=== PATIENT | female | born 1940 | race Caucasian/White ===

== ENCOUNTER 2016-06-02 10:06 | Emergency (ER) | payer OTHER ==
[~2016-06-02] VITALS: Ht 154.9 cm; Wt 96.9 kg
[~2016-06-02 10:06] MED LIST: ABILIFY5 MG PO; ACETAMINOPHEN500 MG PO; ADVAIR 500/501 DISK IH; ANALGESIC325 M1 PO; ANAPROX DS550 M1 PO; ASPIR 8181 M1 PO; ASPIRIN325 MG PO; ASPIRIN81 M2 PO; ATARAX,VISTARIL25 MG PO; AZILECT1 MG PO; Ativan PO; BACTRIM,SEPT1 TABLET PO; BENTYL20 MG PO; BUSPAR10 MG PO; CALCIUM CARB1 TABLET PO; CARBIDOPA-LEVO1 EAC5 PO; CARBIDOPA-LEVO1 EAC8 PO; CIPRO500 MG PO; CITRATE OF MAG296 ML PO; COL-RITE100 M1 PO; COLACE100 MG PO; COUMADIN1 MG PO; CYMBALTA30 MG PO; CYMBALTA60 MG PO; Ceftin PO; Colace PO; Combivent IH; Cymbalta PO; DAILY VITE1 EAC1 PO; DEPAKOTE500 MG PO; DICYCLOMINE HCL20 MG PO; DITROPAN5 MG PO; DIVALPROEX SOD500 M1 PO; DIVALPROEX SOD500 MG PO; DOCUSATE SODIU100 MG PO; DOXYCYCLINE HY100 MG PO; DULCOLAX10 MG PR; DULCOLAX5 MG PO; Depakote PO; Ditropan PO; Dulcolax PR; DuoNeb IH; Ecotrin PO; FLOVENT 22120 INHALA IH; FUROSEMIDE20 MG PO; Flovent 220 mcg IH; GENTLE LAXATIVE10 MG RC; GEODON40 MG PO; GLUCOPHAGE500 MG PO; Geodon PO; HUMALOG MI100 UNIT/5 SC; HUMALOG100 UNIT/2 SC; HUMULIN 70100 UNIT/1 SC; HYDROCODON-ACE1 EAC7 PO; KEFLEX500 MG PO; KLONOPIN0.5 M1 PO; LANTUS 3 M100 UNITS/ SC; LANTUS100 UNIT/1 SQ; LASIX20 MG PO; LAXATIVE SUPPOS10 MG PR; LEVEMIR FL100 UNIT/1 SC; LEVEMIR FL100 UNITS/; LEVEMIR FL100 UNITS/ SC; LEVEMIR100 UNIT/2 SC; LEVOFLOXACIN750 MG PO; LEVOTHROID75 MCG PO; LEVOTHYROXINE88 MCG PO; LEVOXYL88 MCG PO; LISINOPRIL10 MG PO; LISINOPRIL20 MG PO; LISINOPRIL5 MG PO; LO-DOSE ASPIRIN81 M2 PO; LOPRESSOR25 MG PO; LORTAB 5-325 M1 EACH PO; LOW DOSE ASPIRI81 M2 PO; LYRICA150 MG PO; LYRICA50 MG PO; LYRICA75 MG PO; Levothroid,Synthroid PO; Lopressor PO; MEDROL DOSEPAK4 MG PO; METFORMIN HCL500 MG PO; METOPROLOL TART25 MG PO; METOPROLOL TART50 MG PO; METRONIDAZOLE500 MG PO; MIRALAX17 GM PO; MONTELUKAST SOD10 MG PO; MULTIVITAMIN1 EAC2 PO; MYRBETRIQ25 MG PO; Miralax, Glycolax PO; NEURONTIN300 MG PO; NOVOLOG 10100 UNITS/ SC; NOVOLOG MI100 UNIT/M PO; NOVOLOG MI100 UNIT/M SC; NOVOLOG MIX SQ; NOVOLOG PE100 UNITS/; NOVOLOG PE100 UNITS/ SC; NOVOLOG100 UNIT/1 SC; NOVOLOG100 UNIT/1 SQ; OMEPRAZOLE40 M1 PO; ONE DAILY FOR1 EAC3 PO; ONE DAILY MULT1 EACH PO; OXYBUTYNIN CHLO10 MG PO; OXYBUTYNIN CHLOR5 M1 PO; OXYBUTYNIN CHLOR5 MG PO; OXYTROL FOR WO1 EACH TD; PAIN RELIEVER500 MG PO; POLYETHYLENE GL17 GM PO; PREDNISONE10 MG PO; PRILOSEC40 MG PO; PRINIVIL20 MG PO; PRINIVIL5 MG PO; PROAIR HFA8.5 GM IH; PROMETHAZINE12.5 M1 PO; RESVERATROL100 MG PO; SENNA PO; SENNA-TIME S T1 EACH PO; SENOKOT S,PE1 TABLET PO; SENOKOT,SENN1 TABLET PO; SIMVASTATIN40 M1 PO; SIMVASTATIN40 MG PO; SINEMET 25-2501 EAC1 PO; SINEMET CR 25-1 EACH PO; SINEMET CR 50-1 EACH PO; SINEMET PO; SINGULAIR10 MG PO; STOOL SOFTENER100 M1 PO; SUPER B MAXI C0.4 MG PO; SYNTHROID75 MCG PO; SYNTHROID88 MCG PO; Senokot,Sennagen PO; Singulair PO; TIROSINT75 MCG PO; TOPROL XL25 MG PO; TOPROL XL6.25 MG PO; TOUJEO SOL300 UNIT/1 SC; TRAMADOL HCL50 MG PO; TYLENOL WITH C1 EACH PO; Tylenol Extra Streng PO; ULTRAM50 MG PO; VALPROIC ACID1 GM MC; VENTOLIN HFA18 GM IH; VESICARE5 MG PO; WOMEN'S 50+ DA1 EAC1 PO; XANAX0.25 MG PO; Xanax PO; ZESTRIL20 MG PO; ZESTRIL5 MG PO; ZIPRASIDONE HCL40 MG PO; ZOCOR40 MG PO; ZOFRAN ODT4 MG PO; ZOFRAN4 MG PO; ZOVIRAX 5%; predniSONE PO
[2016-06-02 10:39] LABS: POINT-OF-CARE METER ID UU13113702
[2016-06-02 11:32] LABS: BASOPHIL COUNT 0.1 K/uL (0-0.1); EOSINOPHIL (%) 0.9 % (0-5); EOSINOPHIL COUNT 0.1 K/uL (0-0.3); HEMATOCRIT 44.2 % (36.0-46.0); IMMATURE GRANULOCYTE (%) 0.7 % (0.0-0.7); IMMATURE GRANULOCYTE COUNT 0.6 K/uL; LYMPHOCYTE COUNT 1.9 K/uL (1.0-2.8); MCH 31.5 PG (29.0-34.0); MCHC 35.1 G/DL (30.0-36.0); MCV 89.8 FL (83-99); MEAN PLAT.VOLUME 12.2 uM^3 (9.5-12.4); MONOCYTE (%) 7.6 % (3-12); MONOCYTE COUNT 0.7 K/uL (0-0.8); NEUTROPHIL (%) 69.2 % (45-76); NEUTROPHIL COUNT 6.1 K/uL (1.8-6.4); PLATELET COUNT 197 K/uL (156-360); RBC DIS.WIDTH-CV 12.5 % (11.8-14.6); RBC DIS.WIDTH-SD 40.2 % (39-53); RED BLOOD COUNT 4.92 M/uL (3.80-5.20); WHITE BLOOD COUNT 8.9 K/uL (4.1-10.2)
[2016-06-02 11:41] LABS: CHLORIDE 98 mEq/L (99-109); POTASSIUM 4.8 mEq/L (3.7-5.4); SODIUM 136 mEq/L (136-147)
[2016-06-02 11:44] LABS: GLUCOSE 454 mg/dL (70-99)
[2016-06-02 11:45] LABS: ANION GAP 21 MEQ/L (2-14)
[2016-06-02 11:47] LABS: GFR ESTIMATE (CALCULATED) 36 mL/min/
[2016-06-02 11:48] LABS: UREA NITROGEN (BUN) 27 mg/dL (9-23)
[2016-06-02 12:03] LABS: ADD MIUA? YES; BILIRUBIN NEGATIVE; BLOOD NEGATIVE; COLOR YELLOW ((YELLOW)); GLUCOSE (STRIP) >=500; KETONES 20; LEUKOCYTES TRACE; NITRITE NEGATIVE; PROTEIN (STRIP) NEGATIVE; SPECIFIC GRAVITY 1.016 (1.000-1.030); UROBILINOGEN 0.2 MG/DL (0.2-1.0)
[2016-06-02 12:08] LABS: CARBON DIOXIDE (BICARBONATE) 23.4 MEQ/L (20-31)
[2016-06-02 12:22] LABS: BACTERIA RARE /HPF; EPITHELIAL CELLS RARE /HPF; MUCUS NONE SEEN /LPF; RED BLOOD CELLS NONE SEEN /HPF (0-5); UCUL ADDED? NO; WHITE BLOOD CELLS RARE /HPF (0-5)
[2016-06-02 12:31] LABS: POINT-OF-CARE METER ID UU13113702
[2016-06-02 15:31] VITALS: BP 104/84
== END 2016-06-02 15:59 | disposition home or self-care (01) ==
LOC: EME 10:06
PROVIDERS: Emergency Medicine
DX: E11.65 Type 2 diabetes mellitus with hyperglycemia (principal); E86.0 Dehydration; E78.5 Hyperlipidemia, unspecified; I10 Essential (primary) hypertension; E03.9 Hypothyroidism, unspecified; Z79.4 Long term (current) use of insulin
CPT/HCPCS: 71010; 80048; 81003; 82010; 82803; 82948; 85025; 93005; 99281; 99285; J2405; J7030

== ENCOUNTER 2016-07-06 00:58 | Inpatient (IN) | payer OTHER ==
[2016-07-06] VITALS (9 sets, daily range): BP systolic 86–162; BP diastolic 51–74
[~2016-07-06] VITALS: Ht 154.9 cm; Wt 98.2 kg
[2016-07-06 01:54] LABS: HEMATOCRIT 40.3 % (36.0-46.0); MCH 31.5 PG (29.0-34.0); MCHC 34.7 G/DL (30.0-36.0); MCV 90.8 FL (83-99); MEAN PLAT.VOLUME 11.4 uM^3 (9.5-12.4); PLATELET COUNT 202 K/uL (156-360); RBC DIS.WIDTH-CV 11.9 % (11.8-14.6); RBC DIS.WIDTH-SD 39.7 % (39-53); RED BLOOD COUNT 4.44 M/uL (3.80-5.20); WHITE BLOOD COUNT 8.5 K/uL (4.1-10.2)
[2016-07-06 02:04] LABS: CHLORIDE 94 mEq/L (99-109); POTASSIUM 4.4 mEq/L (3.7-5.4); SODIUM 131 mEq/L (136-147)
[2016-07-06 02:05] LABS: GLUCOSE 350 mg/dL (70-99)
[2016-07-06 02:07] LABS: ANION GAP 16 MEQ/L (2-14)
[2016-07-06 02:09] LABS: GFR ESTIMATE (CALCULATED) 29 mL/min/
[2016-07-06 02:10] LABS: UREA NITROGEN (BUN) 37 mg/dL (9-23)
[2016-07-06 02:13] LABS: TROP-I INTERPRETATION NEGATIVE; TROPONIN-I 0.02 ng/mL (0.0-0.30)
[2016-07-06 03:10] LABS: BILIRUBIN NEGATIVE; BLOOD NEGATIVE; COLOR AMBER ((YELLOW)); GLUCOSE (STRIP) >=500; KETONES 5; LEUKOCYTES NEGATIVE; NITRITE NEGATIVE; PROTEIN (STRIP) NEGATIVE; UROBILINOGEN 0.2 MG/DL (0.2-1.0)
[2016-07-06 03:26] LABS: ADD MIUA? NO; UCUL ADDED? NO
[2016-07-06 08:36] LABS: TROP-I INTERPRETATION NEGATIVE; TROPONIN-I 0.02 ng/mL (0.0-0.30)
[2016-07-06] MEDS ORDERED: HUMALOG KW200 UNIT/1 SC ×2 (10:18→10:19)
[2016-07-06] MEDS ORDERED: ONE DAILY FOR1 EAC1 PO (10:19)
[2016-07-06] MEDS ORDERED: B-COMPLEX-VITA1 EACH PO (10:20)
[2016-07-06] MEDS ORDERED: SINEMET 25-1001 EACH PO (10:22)
[2016-07-06 11:07] LABS: ANION GAP 10 MEQ/L (2-14); CHLORIDE 97 MEQ/L (99-109); GFR ESTIMATE (CALCULATED) 39 mL/min/; GLUCOSE 368 mg/dL (70-99); POTASSIUM 3.9 MEQ/L (3.7-5.4); SAMPLE HEMOLYSIS CHECK 0; SAMPLE ICTERIC CHECK 0; SAMPLE LIPEMIA CHECK 0; SODIUM 131 MEQ/L (136-147); UREA NITROGEN (BUN) 35 mg/dL (9-23)
[2016-07-06 11:59] LABS: BACTERIA NONE SEEN /HPF; EPITHELIAL CELLS RARE /HPF; HYALINE CASTS TNTC /LPF; MUCUS TRACE /LPF; RED BLOOD CELLS 0-5 /HPF (0-5); WHITE BLOOD CELLS 0-5 /HPF (0-5)
[2016-07-06 12:25] LABS: POINT-OF-CARE METER ID UU13113700
[2016-07-06 14:17] LABS: POINT-OF-CARE METER ID UU13113700
[2016-07-06 14:58] LABS: TROP-I INTERPRETATION NEGATIVE; TROPONIN-I 0.02 ng/mL (0.0-0.30)
[2016-07-06 17:20] LABS: POINT-OF-CARE METER ID UU13113700
[2016-07-06 19:36] LABS: ANION GAP 9 MEQ/L (2-14); CHLORIDE 106 MEQ/L (99-109); GFR ESTIMATE (CALCULATED) 43 mL/min/; SAMPLE HEMOLYSIS CHECK 1; SAMPLE ICTERIC CHECK 0; SAMPLE LIPEMIA CHECK 0; SODIUM 137 MEQ/L (136-147); UREA NITROGEN (BUN) 30 mg/dL (9-23)
[2016-07-06 19:38] LABS: GLUCOSE 137 mg/dL (70-99); POTASSIUM 3.9 MEQ/L (3.7-5.4)
[2016-07-07 04:21] VITALS: BP 96/51
[2016-07-07 07:02] VITALS: BP 130/76
[2016-07-07 07:19] LABS: ANION GAP 8 MEQ/L (2-14); CHLORIDE 111 MEQ/L (99-109); GFR ESTIMATE (CALCULATED) > 59 mL/min/; GLUCOSE 106 mg/dL (70-99); POTASSIUM 3.8 MEQ/L (3.7-5.4); SAMPLE HEMOLYSIS CHECK 0; SAMPLE ICTERIC CHECK 0; SAMPLE LIPEMIA CHECK 0; SODIUM 143 MEQ/L (136-147); UREA NITROGEN (BUN) 20 mg/dL (9-23)
[2016-07-07 07:22] LABS: EOSINOPHIL (%) 3.8 % (0-5); EOSINOPHIL COUNT 0.3 K/uL (0-0.3); HEMATOCRIT 34.1 % (36.0-46.0); IMMATURE GRANULOCYTE (%) 0.7 % (0.0-0.7); IMMATURE GRANULOCYTE COUNT 0.1 K/uL; INSTRUMENT ABS NEUTROPHIL CT 4.3 K/uL; MCH 31.3 PG (29.0-34.0); MCHC 33.1 G/DL (30.0-36.0); MCV 94.5 FL (83-99); MONOCYTE (%) 10.7 % (3-12); MONOCYTE COUNT 0.8 K/uL (0-0.8); NEUTROPHIL (%) 57.9 % (45-76); NEUTROPHIL COUNT 4.3 K/uL (1.8-6.4); RBC DIS.WIDTH-CV 12.1 % (11.8-14.6); RBC DIS.WIDTH-SD 42.2 % (39-53); RED BLOOD COUNT 3.61 M/uL (3.80-5.20); WHITE BLOOD COUNT 7.4 K/uL (4.1-10.2)
[2016-07-07 08:07] LABS: HEMATOLOGY COMMENT 1 SN; MEAN PLAT.VOLUME 11.5 uM^3 (9.5-12.4); PLAT.SUFFICIENCY DECREASED
[2016-07-07 08:09] LABS: PLATELET COUNT 121 K/uL (156-360)
[2016-07-07 08:18] LABS: POINT-OF-CARE METER ID UU13113831
[2016-07-07 11:45] VITALS: BP 143/74
[2016-07-07 11:52] LABS: POINT-OF-CARE METER ID UU13113700
[2016-07-07 16:25] VITALS: BP 107/69
[2016-07-07 17:41] LABS: POINT-OF-CARE METER ID UU13113700
[2016-07-07 19:15] VITALS: BP 118/57
[2016-07-07 22:05] LABS: POINT-OF-CARE METER ID UU13113831
[2016-07-08 04:48] VITALS: BP 148/74
[2016-07-08 07:45] VITALS: BP 132/93
[2016-07-08 09:15] LABS: HEMATOCRIT 35.6 % (36.0-46.0); MCH 31.4 PG (29.0-34.0); MCHC 33.4 G/DL (30.0-36.0); MCV 93.9 FL (83-99); MEAN PLAT.VOLUME 12.6 uM^3 (9.5-12.4); PLATELET COUNT 109 K/uL (156-360); RBC DIS.WIDTH-CV 12.6 % (11.8-14.6); RBC DIS.WIDTH-SD 43.2 % (39-53); RED BLOOD COUNT 3.79 M/uL (3.80-5.20); WHITE BLOOD COUNT 7.7 K/uL (4.1-10.2)
[2016-07-08 12:31] VITALS: BP 147/87
[2016-07-08 15:48] VITALS: BP 138/76
[2016-07-08 16:26] LABS: POINT-OF-CARE METER ID UU13113700
[2016-07-08 20:00] VITALS: BP 142/89
[2016-07-08 22:07] LABS: POINT-OF-CARE METER ID UU13113831
[2016-07-09 01:00] VITALS: BP 157/94
[2016-07-09 10:50] VITALS: BP 178/79
[2016-07-09] MEDS ORDERED: ENDOCET 5-3251 EACH PO (12:16)
[2016-07-09 13:16] LABS: POINT-OF-CARE METER ID UU14162513
== END 2016-07-09 14:53 | disposition home or self-care (01) | DRG 312 ==
LOC: EME → EDBD 00:58 → EME 00:58 → EDOF 03:18 → 5WEST 04:06
PROVIDERS: Emergency Medicine; Family Medicine; Hospitalist; Nurse Practitioner Adult Health
DX: R55 Syncope and collapse (principal); N17.9 Acute kidney failure, unspecified; N30.00 Acute cystitis without hematuria; E87.1 Hypo-osmolality and hyponatremia; E86.0 Dehydration; I10 Essential (primary) hypertension; E11.65 Type 2 diabetes mellitus with hyperglycemia; E78.5 Hyperlipidemia, unspecified; E03.9 Hypothyroidism, unspecified; G47.33 Obstructive sleep apnea (adult) (pediatric); N76.0 Acute vaginitis; I05.0 Rheumatic mitral stenosis; G20 Parkinson's disease; R32 Unspecified urinary incontinence; M25.572 Pain in left ankle and joints of left foot; W19.XXXA Unspecified fall, initial encounter; M25.472 Effusion, left ankle; Y99.9 Unspecified external cause status; I25.10 Atherosclerotic heart disease of native coronary artery without angina pectoris; Z88.1 Allergy status to other antibiotic agents; Z88.6 Allergy status to analgesic agent; Z79.82 Long term (current) use of aspirin
CPT/HCPCS: 70450; 71020; 73522; 73610; 80048; 80048 91; 81003; 81015; 82948; 84484; 85025; 85027; 87086; 93005; 94640; 94640 76; 94660; 99281; 99285; G8978 GP CM; G8979 GP CL; G8987 GO CJ; G8987 GO CM; J1644; J1815; J7030; J7040

== ENCOUNTER 2016-08-07 15:29 | Emergency (ER) | payer OTHER ==
[~2016-08-07] VITALS: Ht 154.9 cm; Wt 93.5 kg
[~2016-08-07 15:29] MED LIST changes: +B-COMPLEX-VITA1 EACH PO; +ENDOCET 5-3251 EACH PO; +HUMALOG KW200 UNIT/1 SC; +ONE DAILY FOR1 EAC1 PO; +SINEMET 25-1001 EACH PO
[2016-08-07] MEDS ORDERED: FUROSEMIDE20 MG PO (15:51)
[2016-08-07] MEDS ORDERED: LEVOFLOXACIN750 MG PO (15:52)
[2016-08-07] MEDS ORDERED: AZITHROMYCIN500 M1 PO (15:52)
[2016-08-07] MEDS ORDERED: TRAMADOL HCL50 MG PO (15:53)
[2016-08-07 16:36] LABS: HEMATOCRIT 42.2 % (36.0-46.0); MCH 31.1 PG (29.0-34.0); MCHC 33.4 G/DL (30.0-36.0); MEAN PLAT.VOLUME 10.5 uM^3 (9.5-12.4); PLATELET COUNT 248 K/uL (156-360); RBC DIS.WIDTH-CV 12.8 % (11.8-14.6); RBC DIS.WIDTH-SD 43.3 % (39-53)
[2016-08-07 16:42] LABS: RED BLOOD COUNT 4.54 M/uL (3.80-5.20); WHITE BLOOD COUNT 8.7 K/uL (4.1-10.2)
[2016-08-07 16:44] LABS: CHLORIDE 103 mEq/L (99-109); POTASSIUM 3.6 mEq/L (3.7-5.4); SODIUM 140 mEq/L (136-147)
[2016-08-07 16:46] LABS: GLUCOSE 106 mg/dL (70-99)
[2016-08-07 16:48] LABS: ANION GAP 14 MEQ/L (2-14)
[2016-08-07 16:50] LABS: GFR ESTIMATE (CALCULATED) 47 mL/min/
[2016-08-07 16:51] LABS: UREA NITROGEN (BUN) 24 mg/dL (9-23)
[2016-08-07 18:08] VITALS: BP 94/82
== END 2016-08-07 18:11 | disposition home or self-care (01) ==
LOC: EME 15:29
PROVIDERS: Emergency Medicine
DX: F41.9 Anxiety disorder, unspecified (principal); F32.9 Major depressive disorder, single episode, unspecified; E78.5 Hyperlipidemia, unspecified; K21.9 Gastro-esophageal reflux disease without esophagitis; J45.909 Unspecified asthma, uncomplicated; I10 Essential (primary) hypertension; I25.10 Atherosclerotic heart disease of native coronary artery without angina pectoris; E11.43 Type 2 diabetes mellitus with diabetic autonomic (poly)neuropathy; K31.84 Gastroparesis; E03.9 Hypothyroidism, unspecified; G47.30 Sleep apnea, unspecified; G89.29 Other chronic pain; M54.9 Dorsalgia, unspecified; G20 Parkinson's disease; Z79.4 Long term (current) use of insulin; Z79.82 Long term (current) use of aspirin
CPT/HCPCS: 80048; 85027; 93005; 99281; 99285

== ENCOUNTER → 2016-09-02 | Outpatient (CLI) | payer OTHER ==
[~2016-09-02] MED LIST changes: +AZITHROMYCIN500 M1 PO
== END | disposition home or self-care (01) ==
DX: R13.10 Dysphagia, unspecified (principal); K21.9 Gastro-esophageal reflux disease without esophagitis
CPT/HCPCS: 92611 GN; G8996 GN; G8997 GN; G8998 GN

== ENCOUNTER 2016-10-24 00:46 | Emergency (ER) | payer OTHER ==
[~2016-10-24] VITALS: Ht 154.9 cm; Wt 102.5 kg
[2016-10-24 01:49] LABS: CARBON DIOXIDE (BICARBONATE) 26.1 MEQ/L (20-31)
[2016-10-24 01:50] LABS: EOSINOPHIL (%) 0.7 % (0-5); EOSINOPHIL COUNT 0.1 K/uL (0-0.3); IMMATURE GRANULOCYTE (%) 0.7 % (0.0-0.7); IMMATURE GRANULOCYTE COUNT 0.1 K/uL; INSTRUMENT ABS NEUTROPHIL CT 4.6 K/uL; LYMPHOCYTE COUNT 1.8 K/uL (1.0-2.8); MCH 30.4 PG (29.0-34.0); MCV 95.1 FL (83-99); MEAN PLAT.VOLUME 11.4 uM^3 (9.5-12.4); MONOCYTE (%) 9.6 % (3-12); MONOCYTE COUNT 0.7 K/uL (0-0.8); NEUTROPHIL (%) 64.2 % (45-76); NEUTROPHIL COUNT 4.6 K/uL (1.8-6.4); PLATELET COUNT 181 K/uL (156-360); RBC DIS.WIDTH-CV 12.7 % (11.8-14.6); RBC DIS.WIDTH-SD 43.9 % (39-53); RED BLOOD COUNT 3.68 M/uL (3.80-5.20); WHITE BLOOD COUNT 7.2 K/uL (4.1-10.2)
[2016-10-24 02:00] LABS: CHLORIDE 103 mEq/L (99-109); POTASSIUM 4.6 mEq/L (3.7-5.4); SODIUM 135 mEq/L (136-147)
[2016-10-24 02:04] LABS: ANION GAP 9 MEQ/L (2-14); TOTAL BILIRUBIN 0.3 mg/dL (0.0-1.0)
[2016-10-24 02:06] LABS: ALKALINE PHOSPHATASE 79 IU/L (3-129); GFR ESTIMATE (CALCULATED) 39 mL/min/
[2016-10-24 02:07] LABS: GLUCOSE 654 mg/dL (70-99); UREA NITROGEN (BUN) 29 mg/dL (9-23)
[2016-10-24 02:11] LABS: TROP-I INTERPRETATION NEGATIVE; TROPONIN-I < 0.01 ng/mL (0.0-0.30)
[2016-10-24 02:51] LABS: SAMPLE HEMOLYSIS CHECK 0; SAMPLE ICTERIC CHECK 0; SAMPLE LIPEMIA CHECK 0
[2016-10-24 03:58] LABS: POINT-OF-CARE METER ID UU14100415
[2016-10-24 04:30] VITALS: BP 144/89
[2016-10-24 18:56] LABS: POINT-OF-CARE METER ID UU14100415
== END 2016-10-24 04:00 | disposition home or self-care (01) ==
LOC: EME 00:46
PROVIDERS: Emergency Medicine
DX: E11.65 Type 2 diabetes mellitus with hyperglycemia (principal); Z79.4 Long term (current) use of insulin; R51 Headache; I10 Essential (primary) hypertension; E03.9 Hypothyroidism, unspecified; E78.5 Hyperlipidemia, unspecified; Z79.82 Long term (current) use of aspirin; J45.909 Unspecified asthma, uncomplicated; G20 Parkinson's disease
CPT/HCPCS: 70450; 80053; 81003; 82010; 82803; 82948; 84484; 85025; 93005; 99281; 99285; J7030

== ENCOUNTER 2016-12-14 15:38 | Emergency (ER) | payer OTHER ==
[~2016-12-14] VITALS: Ht 154.9 cm; Wt 100.6 kg
[2016-12-14 16:49] LABS: HEMATOCRIT 40.3 % (36.0-46.0); MCH 31.3 PG (29.0-34.0); MCHC 34.7 G/DL (30.0-36.0); MEAN PLAT.VOLUME 11.7 uM^3 (9.5-12.4); PLATELET COUNT 191 K/uL (156-360); RBC DIS.WIDTH-CV 12.1 % (11.8-14.6); RBC DIS.WIDTH-SD 39.7 % (39-53); RED BLOOD COUNT 4.48 M/uL (3.80-5.20); WHITE BLOOD COUNT 7.1 K/uL (4.1-10.2)
[2016-12-14 18:24] LABS: CHLORIDE 97 mEq/L (99-109); SODIUM 135 mEq/L (136-147)
[2016-12-14 18:28] LABS: ANION GAP 14 MEQ/L (2-14)
[2016-12-14 18:30] LABS: GFR ESTIMATE (CALCULATED) 42 mL/min/
[2016-12-14 18:31] LABS: UREA NITROGEN (BUN) 23 mg/dL (9-23)
[2016-12-14 18:37] LABS: GLUCOSE 501 mg/dL (70-99)
[2016-12-14 20:08] VITALS: BP 110/85
[2016-12-14 21:13] LABS: POINT-OF-CARE METER ID UU13113747; POINT-OF-CARE USER ID 608261302
[2016-12-14 21:13] LABS: POINT-OF-CARE METER ID UU13113747
== END 2016-12-14 20:08 | disposition home or self-care (01) ==
LOC: EME 15:38
PROVIDERS: Emergency Medicine
DX: E11.65 Type 2 diabetes mellitus with hyperglycemia (principal); M54.32 Sciatica, left side; Z79.4 Long term (current) use of insulin; E78.5 Hyperlipidemia, unspecified; I10 Essential (primary) hypertension; G20 Parkinson's disease; E03.9 Hypothyroidism, unspecified; J45.909 Unspecified asthma, uncomplicated; Z91.81 History of falling; Z88.6 Allergy status to analgesic agent
CPT/HCPCS: 80048; 82948; 85027; 99281; 99285; J1815; J7030

== ENCOUNTER 2016-12-26 12:09 | Emergency (ER) | payer OTHER ==
[~2016-12-26] VITALS: Ht 154.9 cm; Wt 97.7 kg
[2016-12-26 13:28] LABS: CARBON DIOXIDE (BICARBONATE) 31.2 MEQ/L (20-31)
[2016-12-26 13:30] LABS: EOSINOPHIL (%) 2.3 % (0-5); EOSINOPHIL COUNT 0.2 K/uL (0-0.3); HEMATOCRIT 38.8 % (36.0-46.0); IMMATURE GRANULOCYTE (%) 0.7 % (0.0-0.7); IMMATURE GRANULOCYTE COUNT 0.1 K/uL; INSTRUMENT ABS NEUTROPHIL CT 3.7 K/uL; LYMPHOCYTE COUNT 2.4 K/uL (1.0-2.8); MCH 30.7 PG (29.0-34.0); MCV 90.2 FL (83-99); MEAN PLAT.VOLUME 11.8 uM^3 (9.5-12.4); MONOCYTE (%) 11.4 % (3-12); MONOCYTE COUNT 0.8 K/uL (0-0.8); NEUTROPHIL (%) 51.2 % (45-76); NEUTROPHIL COUNT 3.7 K/uL (1.8-6.4); PLATELET COUNT 194 K/uL (156-360); RBC DIS.WIDTH-CV 12.2 % (11.8-14.6); RBC DIS.WIDTH-SD 39.9 % (39-53); WHITE BLOOD COUNT 7.1 K/uL (4.1-10.2)
[2016-12-26 13:38] LABS: CHLORIDE 92 mEq/L (99-109); POTASSIUM 4.2 mEq/L (3.7-5.4); SODIUM 129 mEq/L (136-147)
[2016-12-26 13:42] LABS: ANION GAP 12 MEQ/L (2-14); TOTAL BILIRUBIN 0.6 mg/dL (0.0-1.0)
[2016-12-26 13:44] LABS: ALKALINE PHOSPHATASE 134 IU/L (3-129); GFR ESTIMATE (CALCULATED) 36 mL/min/; GLUCOSE 659 mg/dL (70-99)
[2016-12-26 13:45] LABS: UREA NITROGEN (BUN) 24 mg/dL (9-23)
[2016-12-26 13:46] LABS: DIRECT BILIRUBIN 0.3 mg/dL (0.0-0.3)
[2016-12-26 13:48] LABS: LIPASE 32 U/L (1.0-51.0)
[2016-12-26 14:02] LABS: ADD MIUA? YES; BILIRUBIN NEGATIVE; BLOOD SMALL; COLOR COLORLESS ((YELLOW)); GLUCOSE (STRIP) >=500; KETONES NEGATIVE; LEUKOCYTES NEGATIVE; NITRITE NEGATIVE; PROTEIN (STRIP) NEGATIVE; UROBILINOGEN 0.2 MG/DL (0.2-1.0)
[2016-12-26 14:04] LABS: BACTERIA NONE SEEN /HPF; EPITHELIAL CELLS RARE /HPF; MUCUS NONE SEEN /LPF; RED BLOOD CELLS 0-5 /HPF (0-5); WHITE BLOOD CELLS 0-5 /HPF (0-5)
[2016-12-26 15:02] LABS: POINT-OF-CARE METER ID UU13113747
[2016-12-26 15:31] LABS: POINT-OF-CARE METER ID UU13113747
[2016-12-26 16:21] VITALS: BP 129/95
== END 2016-12-26 16:22 | disposition home or self-care (01) ==
LOC: EME 12:09
PROVIDERS: Emergency Medicine
DX: E11.65 Type 2 diabetes mellitus with hyperglycemia (principal); I10 Essential (primary) hypertension; E78.5 Hyperlipidemia, unspecified; J45.909 Unspecified asthma, uncomplicated; K21.9 Gastro-esophageal reflux disease without esophagitis; G20 Parkinson's disease; E11.43 Type 2 diabetes mellitus with diabetic autonomic (poly)neuropathy; K31.84 Gastroparesis; E03.9 Hypothyroidism, unspecified; I25.10 Atherosclerotic heart disease of native coronary artery without angina pectoris; F32.9 Major depressive disorder, single episode, unspecified; F41.9 Anxiety disorder, unspecified; Z79.4 Long term (current) use of insulin
CPT/HCPCS: 80048; 80076; 81003; 82803; 82948; 83605; 83690; 85025; 87040; 87086; 93005; 99281; 99285; J2405; J7030

== ENCOUNTER 2017-03-03 13:00 | Observation (INO) | payer OTHER ==
[~2017-03-03] VITALS: Ht 154.9 cm; Wt 93.7 kg
[2017-03-03 13:37] LABS: EOSINOPHIL (%) 2.5 % (0-5); EOSINOPHIL COUNT 0.2 K/uL (0-0.3); HEMATOCRIT 38.8 % (36.0-46.0); IMMATURE GRANULOCYTE (%) 0.1 % (0.0-0.7); LYMPHOCYTE COUNT 2.8 K/uL (1.0-2.8); MCH 31.9 PG (29.0-34.0); MCHC 35.1 G/DL (30.0-36.0); MCV 90.9 FL (83-99); MEAN PLAT.VOLUME 12.2 uM^3 (9.5-12.4); MONOCYTE (%) 12.2 % (3-12); MONOCYTE COUNT 0.8 K/uL (0-0.8); NEUTROPHIL (%) 44.2 % (45-76); PLATELET COUNT 174 K/uL (156-360); RBC DIS.WIDTH-CV 12.5 % (11.8-14.6); RBC DIS.WIDTH-SD 41.1 % (39-53); RED BLOOD COUNT 4.27 M/uL (3.80-5.20); WHITE BLOOD COUNT 6.8 K/uL (4.1-10.2)
[2017-03-03 13:45] LABS: CARBON DIOXIDE (BICARBONATE) 26.5 MEQ/L (20-31); CHLORIDE 96 mEq/L (99-109); POTASSIUM 4.8 mEq/L (3.7-5.4); SODIUM 132 mEq/L (136-147)
[2017-03-03 13:48] LABS: ANION GAP 13 MEQ/L (2-14)
[2017-03-03 13:49] LABS: GLUCOSE 537 mg/dL (70-99); TOTAL BILIRUBIN 0.9 mg/dL (0.0-1.0)
[2017-03-03 13:51] LABS: ALKALINE PHOSPHATASE 84 IU/L (3-129); GFR ESTIMATE (CALCULATED) 36 mL/min/
[2017-03-03 13:52] LABS: UREA NITROGEN (BUN) 26 mg/dL (9-23)
[2017-03-03 16:06] LABS: ADD MIUA? NO; BILIRUBIN NEGATIVE; BLOOD NEGATIVE; COLOR YELLOW ((YELLOW)); GLUCOSE (STRIP) >=500; KETONES 5; LEUKOCYTES NEGATIVE; NITRITE NEGATIVE; PROTEIN (STRIP) NEGATIVE; SPECIFIC GRAVITY 1.021 (1.000-1.030); UCUL ADDED? NO; UROBILINOGEN 0.2 MG/DL (0.2-1.0)
[2017-03-03] MEDS ORDERED: CARBIDOPA/LEVO1 EACH PO ×2 (17:05)
[2017-03-03] MEDS ORDERED: ALPRAZOLAM0.25 M2 PO (17:07)
[2017-03-03] MEDS ORDERED: TOUJEO SOL300 UNIT/1 SC (17:07)
[2017-03-03 19:03] LABS: POINT-OF-CARE METER ID UU13113702
[2017-03-03 21:43] LABS: POINT-OF-CARE METER ID UU13113700
[2017-03-03 23:14] LABS: POINT-OF-CARE METER ID UU13113831
[2017-03-04 01:24] LABS: POINT-OF-CARE METER ID UU13113700
[2017-03-04 02:30] VITALS: BP 133/84
[2017-03-04 04:52] VITALS: BP 1112/57
[2017-03-04 09:01] LABS: POINT-OF-CARE METER ID UU13113700
[2017-03-04 10:39] LABS: ANION GAP 11 MEQ/L (2-14); CHLORIDE 109 MEQ/L (99-109); POTASSIUM 4.3 MEQ/L (3.7-5.4); SAMPLE HEMOLYSIS CHECK 0; SAMPLE ICTERIC CHECK 0; SAMPLE LIPEMIA CHECK 0; UREA NITROGEN (BUN) 18 mg/dL (9-23)
[2017-03-04 10:40] LABS: GFR ESTIMATE (CALCULATED) > 59 mL/min/; GLUCOSE 94 mg/dL (70-99)
[2017-03-04 10:41] LABS: SODIUM 144 MEQ/L (136-147)
[2017-03-04 12:00] VITALS: BP 112/59
[2017-03-04 12:27] LABS: POINT-OF-CARE METER ID UU13113831
== END 2017-03-04 15:43 | disposition home or self-care (01) ==
LOC: EME 13:00 → EDOF 16:41 → 5WEST 16:41 → EDOF 16:41 → ENRESERV 16:43 → 5WEST 19:13
PROVIDERS: Emergency Medicine; Hospitalist; Nurse Practitioner Adult Health
DX: E11.65 Type 2 diabetes mellitus with hyperglycemia (principal); E03.9 Hypothyroidism, unspecified; G20 Parkinson's disease; E78.5 Hyperlipidemia, unspecified; I10 Essential (primary) hypertension; W06.XXXA Fall from bed, initial encounter; Y93.9 Activity, unspecified; Y92.230 Patient room in hospital as the place of occurrence of the external cause; M54.2 Cervicalgia; M25.552 Pain in left hip; E66.01 Morbid (severe) obesity due to excess calories; J44.9 Chronic obstructive pulmonary disease, unspecified; F43.23 Adjustment disorder with mixed anxiety and depressed mood; Z79.4 Long term (current) use of insulin; Z99.3 Dependence on wheelchair; Z82.49 Family history of ischemic heart disease and other diseases of the circulatory system; E87.1 Hypo-osmolality and hyponatremia; Z88.5 Allergy status to narcotic agent
CPT/HCPCS: 70450; 72125; 72128; 72131; 73560; 74176; 80048; 80053; 81003; 82010; 82803; 82948; 85025; 94640; 99202; 99281; 99285; G0378; G8978 GP CJ; G8979 GP CH; G8987 GO CJ; G8988 GO CJ; J1170; J1650; J1815; J2060; J7030

== ENCOUNTER 2017-05-12 09:24 | Inpatient (IN) | payer OTHER ==
[~2017-05-12] VITALS: Ht 154.9 cm; Wt 96.7 kg
[~2017-05-12 09:24] MED LIST changes: +ALPRAZOLAM0.25 M2 PO; +CARBIDOPA/LEVO1 EACH PO; +DEPAKOTE ER250 MG PO; +SYNTHROID100 MCG PO
[2017-05-12 10:43] LABS: BASOPHIL (%) 0.5 % (0-1); EOSINOPHIL (%) 0.6 % (0-5); EOSINOPHIL COUNT 0.1 K/uL (0-0.3); HEMATOCRIT 39.3 % (36.0-46.0); HEMOGLOBIN 13.7 G/DL (11.9-15.5); IMMATURE GRANULOCYTE (%) 0.2 % (0.0-0.7); MCH 32.3 PG (29.0-34.0); MCHC 34.9 G/DL (30.0-36.0); MCV 92.7 FL (83-99); MONOCYTE (%) 11.5 % (3-12); NEUTROPHIL (%) 51.2 % (45-76); NEUTROPHIL COUNT 4.3 K/uL (1.8-6.4); PLATELET COUNT 190 K/uL (156-360); RBC DIS.WIDTH-SD 40.7 % (39-53); RED BLOOD COUNT 4.24 M/uL (3.80-5.20); WHITE BLOOD COUNT 8.5 K/uL (4.1-10.2)
[2017-05-12 10:46] LABS: CARBON DIOXIDE (BICARBONATE) 23.9 MEQ/L (20-31)
[2017-05-12 10:53] LABS: CHLORIDE 96 mEq/L (99-109); POTASSIUM 4.4 mEq/L (3.7-5.4); SODIUM 133 mEq/L (136-147)
[2017-05-12 10:59] LABS: CREATININE 1.6 mg/dL (0.6-1.3); GFR ESTIMATE (CALCULATED) 33 mL/min/; GLUCOSE 477 mg/dL (70-99)
[2017-05-12 11:00] LABS: UREA NITROGEN (BUN) 28 mg/dL (9-23)
[2017-05-12 11:05] LABS: TROP-I INTERPRETATION NEGATIVE; TROPONIN-I < 0.01 ng/mL (0.0-0.30)
[2017-05-12] MEDS ORDERED: K-DUR20 MEQ PO (13:32)
[2017-05-12] MEDS ORDERED: ZIPRASIDONE HCL60 MG PO (13:32)
[2017-05-12] MEDS ORDERED: VIT B COMPLEX PO (13:34)
[2017-05-12] MEDS ORDERED: VITAMIN D31000 UNIT PO (13:35)
[2017-05-12] MEDS ORDERED: ACETAMINOPHEN325 M1 PO (13:35)
[2017-05-12 15:46] LABS: APPEARANCE CLEAR ((CLEAR)); BILIRUBIN NEGATIVE; BLOOD NEGATIVE; COLOR YELLOW ((YELLOW)); GLUCOSE (STRIP) >=500; KETONES 20; LEUKOCYTES NEGATIVE; NITRITE NEGATIVE; PROTEIN (STRIP) NEGATIVE; SPECIFIC GRAVITY 1.025 (1.000-1.030); UCUL ADDED? NO; UROBILINOGEN 0.2 MG/DL (0.2-1.0)
[2017-05-12 18:05] VITALS: BP 163/77
[2017-05-12 18:54] VITALS: BP 153/59
[2017-05-12 22:46] VITALS: BP 128/60
[2017-05-13 04:05] VITALS: BP 133/51
[2017-05-13 06:48] LABS: HEMATOCRIT 35.6 % (36.0-46.0); HEMOGLOBIN 12.1 G/DL (11.9-15.5); MCH 32.6 PG (29.0-34.0); PLATELET COUNT 152 K/uL (156-360); RBC DIS.WIDTH-CV 12.5 % (11.8-14.6); RBC DIS.WIDTH-SD 44.1 % (39-53); RED BLOOD COUNT 3.71 M/uL (3.80-5.20); WHITE BLOOD COUNT 5.3 K/uL (4.1-10.2)
[2017-05-13 07:07] VITALS: BP 163/72
[2017-05-13 07:13] LABS: CHLORIDE 105 MEQ/L (99-109); MAGNESIUM 1.5 mg/dl (1.3-2.7); POTASSIUM 3.8 MEQ/L (3.7-5.4); UREA NITROGEN (BUN) 18 mg/dL (9-23)
[2017-05-13 07:26] LABS: GFR ESTIMATE (CALCULATED) 57 mL/min/; GLUCOSE 169 mg/dL (70-99); SODIUM 141 MEQ/L (136-147)
[2017-05-13 11:24] VITALS: BP 127/61
[2017-05-13 15:55] VITALS: BP 106/55
[2017-05-13 20:15] VITALS: BP 131/78
[2017-05-14] VITALS (8 sets, daily range): BP systolic 102–152; BP diastolic 56–80
[2017-05-14 06:04] LABS: BASOPHIL (%) 0.5 % (0-1); EOSINOPHIL (%) 2.5 % (0-5); EOSINOPHIL COUNT 0.2 K/uL (0-0.3); HEMATOCRIT 38.4 % (36.0-46.0); HEMOGLOBIN 12.9 G/DL (11.9-15.5); IMMATURE GRANULOCYTE (%) 0.3 % (0.0-0.7); LYMPHOCYTE (%) 31.7 % (15-42); MCH 32.3 PG (29.0-34.0); MCHC 33.6 G/DL (30.0-36.0); MCV 96.2 FL (83-99); MONOCYTE (%) 10.2 % (3-12); MONOCYTE COUNT 0.7 K/uL (0-0.8); NEUTROPHIL (%) 54.8 % (45-76); NEUTROPHIL COUNT 3.5 K/uL (1.8-6.4); PLATELET COUNT 158 K/uL (156-360); RBC DIS.WIDTH-CV 12.4 % (11.8-14.6); RBC DIS.WIDTH-SD 43.7 % (39-53); RED BLOOD COUNT 3.99 M/uL (3.80-5.20); WHITE BLOOD COUNT 6.4 K/uL (4.1-10.2)
[2017-05-14 06:40] LABS: CHLORIDE 107 MEQ/L (99-109); CREATININE 0.9 MG/DL (0.6-1.3); GFR ESTIMATE (CALCULATED) > 59 mL/min/; GLUCOSE 201 mg/dL (70-99); POTASSIUM 4.4 MEQ/L (3.7-5.4); SODIUM 142 MEQ/L (136-147); UREA NITROGEN (BUN) 13 mg/dL (9-23)
[2017-05-14 08:08] LABS: HEMOGLOBIN A1c (GLYCOHEMOGLOB) 11.3 % (Below 5.7)
[2017-05-14 22:57] LABS: TROP-I INTERPRETATION NEGATIVE; TROPONIN-I < 0.01 ng/mL (0.0-0.30)
[2017-05-15 04:30] VITALS: BP 157/91
[2017-05-15 05:30] VITALS: BP 123/66
[2017-05-15 06:18] LABS: BASOPHIL (%) 0.3 % (0-1); EOSINOPHIL COUNT 0.1 K/uL (0-0.3); HEMATOCRIT 36.5 % (36.0-46.0); HEMOGLOBIN 12.3 G/DL (11.9-15.5); IMMATURE GRANULOCYTE (%) 0.5 % (0.0-0.7); LYMPHOCYTE (%) 27.4 % (15-42); LYMPHOCYTE COUNT 1.8 K/uL (1.0-2.8); MCH 32.2 PG (29.0-34.0); MCHC 33.7 G/DL (30.0-36.0); MCV 95.5 FL (83-99); MONOCYTE (%) 11.7 % (3-12); MONOCYTE COUNT 0.8 K/uL (0-0.8); NEUTROPHIL (%) 58.1 % (45-76); NEUTROPHIL COUNT 3.9 K/uL (1.8-6.4); PLATELET COUNT 145 K/uL (156-360); RBC DIS.WIDTH-CV 12.4 % (11.8-14.6); RBC DIS.WIDTH-SD 43.5 % (39-53); RED BLOOD COUNT 3.82 M/uL (3.80-5.20); WHITE BLOOD COUNT 6.7 K/uL (4.1-10.2)
[2017-05-15 06:41] LABS: CHLORIDE 106 MEQ/L (99-109); GFR ESTIMATE (CALCULATED) 57 mL/min/; GLUCOSE 200 mg/dL (70-99); POTASSIUM 4.2 MEQ/L (3.7-5.4); SODIUM 139 MEQ/L (136-147); UREA NITROGEN (BUN) 19 mg/dL (9-23)
[2017-05-15 06:50] VITALS: BP 120/63
[2017-05-15 09:13] LABS: TROP-I INTERPRETATION NEGATIVE; TROPONIN-I < 0.01 ng/mL (0.0-0.30)
[2017-05-15 15:37] VITALS: BP 114/62
[2017-05-15 19:50] VITALS: BP 135/77
[2017-05-16 03:27] LABS: TROP-I INTERPRETATION NEGATIVE; TROPONIN-I 0.01 ng/mL (0.0-0.30)
[2017-05-16 03:27] LABS: BASOPHIL (%) 0.1 % (0-1); EOSINOPHIL (%) 0 % (0-5); HEMOGLOBIN 12.8 G/DL (11.9-15.5); IMMATURE GRANULOCYTE (%) 0.7 % (0.0-0.7); LYMPHOCYTE (%) 9.8 % (15-42); LYMPHOCYTE COUNT 0.8 K/uL (1.0-2.8); MCH 32.6 PG (29.0-34.0); MCHC 34.6 G/DL (30.0-36.0); MCV 94.1 FL (83-99); MONOCYTE (%) 2.5 % (3-12); MONOCYTE COUNT 0.2 K/uL (0-0.8); NEUTROPHIL (%) 86.9 % (45-76); NEUTROPHIL COUNT 7.3 K/uL (1.8-6.4); PLATELET COUNT 154 K/uL (156-360); RBC DIS.WIDTH-CV 12.3 % (11.8-14.6); RBC DIS.WIDTH-SD 42.6 % (39-53); RED BLOOD COUNT 3.93 M/uL (3.80-5.20); WHITE BLOOD COUNT 8.4 K/uL (4.1-10.2)
[2017-05-16 03:31] LABS: CHLORIDE 100 MEQ/L (99-109); CREATININE 1.1 MG/DL (0.6-1.3); GFR ESTIMATE (CALCULATED) 51 mL/min/; POTASSIUM 4.9 MEQ/L (3.7-5.4); SODIUM 135 MEQ/L (136-147); UREA NITROGEN (BUN) 26 mg/dL (9-23)
[2017-05-16 03:32] LABS: GLUCOSE 301 mg/dL (70-99)
[2017-05-16 04:39] VITALS: BP 175/95
[2017-05-16 07:50] VITALS: BP 132/67
[2017-05-16 09:35] LABS: TROP-I INTERPRETATION NEGATIVE; TROPONIN-I < 0.01 ng/mL (0.0-0.30)
[2017-05-16 11:34] VITALS: BP 133/94
[2017-05-16 15:11] VITALS: BP 113/55
[2017-05-16 15:38] LABS: TROP-I INTERPRETATION NEGATIVE; TROPONIN-I 0.01 ng/mL (0.0-0.30)
[2017-05-16 20:16] VITALS: BP 140/77
[2017-05-16 23:41] VITALS: BP 126/72
[2017-05-17 03:41] VITALS: BP 128/61
[2017-05-17 06:06] LABS: BASOPHIL (%) 0.2 % (0-1); EOSINOPHIL (%) 0 % (0-5); HEMATOCRIT 34.7 % (36.0-46.0); HEMOGLOBIN 11.9 G/DL (11.9-15.5); IMMATURE GRANULOCYTE (%) 0.8 % (0.0-0.7); LYMPHOCYTE (%) 10.1 % (15-42); LYMPHOCYTE COUNT 1.1 K/uL (1.0-2.8); MCHC 34.3 G/DL (30.0-36.0); MCV 96.1 FL (83-99); MONOCYTE COUNT 0.9 K/uL (0-0.8); NEUTROPHIL (%) 80.9 % (45-76); PLATELET COUNT 151 K/uL (156-360); RBC DIS.WIDTH-CV 12.7 % (11.8-14.6); RBC DIS.WIDTH-SD 44.6 % (39-53); RED BLOOD COUNT 3.61 M/uL (3.80-5.20); WHITE BLOOD COUNT 11.1 K/uL (4.1-10.2)
[2017-05-17 06:22] LABS: CHLORIDE 102 MEQ/L (99-109); CREATININE 1.2 MG/DL (0.6-1.3); GFR ESTIMATE (CALCULATED) 47 mL/min/; GLUCOSE 296 mg/dL (70-99); POTASSIUM 4.6 MEQ/L (3.7-5.4); SODIUM 137 MEQ/L (136-147); UREA NITROGEN (BUN) 33 mg/dL (9-23)
[2017-05-17 07:06] VITALS: BP 116/69
[2017-05-17 11:16] VITALS: BP 116/74
[2017-05-17 15:00] VITALS: BP 117/63
[2017-05-17 21:47] LABS: GLUCOSE 384 mg/dL (70-99)
[2017-05-17 23:27] VITALS: BP 128/60
[2017-05-18 06:38] LABS: HEMATOCRIT 34.1 % (36.0-46.0); HEMOGLOBIN 11.5 G/DL (11.9-15.5); MCH 32.5 PG (29.0-34.0); MCHC 33.7 G/DL (30.0-36.0); MCV 96.3 FL (83-99); NRBC (%) 0.2 /100 WBC (0-0); PLATELET COUNT 158 K/uL (156-360); RBC DIS.WIDTH-CV 12.8 % (11.8-14.6); RBC DIS.WIDTH-SD 44.8 % (39-53); RED BLOOD COUNT 3.54 M/uL (3.80-5.20); WHITE BLOOD COUNT 10.5 K/uL (4.1-10.2)
[2017-05-18 07:17] VITALS: BP 114/58
[2017-05-18 11:03] VITALS: BP 120/60
[2017-05-18 16:31] VITALS: BP 118/68
[2017-05-18 23:47] VITALS: BP 125/61
[2017-05-19 06:16] LABS: CHLORIDE 106 MEQ/L (99-109); GFR ESTIMATE (CALCULATED) 57 mL/min/; GLUCOSE 67 mg/dL (70-99); POTASSIUM 4.3 MEQ/L (3.7-5.4); SODIUM 142 MEQ/L (136-147); UREA NITROGEN (BUN) 37 mg/dL (9-23)
[2017-05-19 07:58] VITALS: BP 124/68
[2017-05-19 16:01] VITALS: BP 120/61
[2017-05-20 00:14] VITALS: BP 130/69
[2017-05-20 07:00] VITALS: BP 105/60
[2017-05-20 15:20] VITALS: BP 115/53
[2017-05-20 22:02] VITALS: BP 102/52
[2017-05-20 23:10] VITALS: BP 107/58
[2017-05-21 07:27] VITALS: BP 101/54
[2017-05-21 16:14] VITALS: BP 110/75
[2017-05-21 23:24] VITALS: BP 140/89
[2017-05-22 08:05] VITALS: BP 128/58
[2017-05-22 08:08] LABS: CHLORIDE 100 MEQ/L (99-109); CREATININE 1.1 MG/DL (0.6-1.3); GFR ESTIMATE (CALCULATED) 51 mL/min/; GLUCOSE 89 mg/dL (70-99); POTASSIUM 4.3 MEQ/L (3.7-5.4); SODIUM 139 MEQ/L (136-147); UREA NITROGEN (BUN) 38 mg/dL (9-23)
[2017-05-22] MEDS ORDERED: LACTULOSE10 GM/151 PR (13:48)
[2017-05-22 16:31] VITALS: BP 122/69
== END 2017-05-22 19:27 | DRG 683 ==
LOC: EME 09:24 → EDOF 13:27 → 5EAST 13:27 → ENRESERV 13:29 → 5EAST 17:26
PROVIDERS: Emergency Medicine; Hospitalist; Internal Medicine; Physician Assistant
PROC: 5A09357 Assistance with Respiratory Ventilation, Less than 24 Consecutive Hours, Continuous Positive Airway Pressure (ICD-10-PCS; principal; 2017-05-13)
DX: N17.9 Acute kidney failure, unspecified (principal); J44.1 Chronic obstructive pulmonary disease with (acute) exacerbation; E86.0 Dehydration; E11.65 Type 2 diabetes mellitus with hyperglycemia; E11.42 Type 2 diabetes mellitus with diabetic polyneuropathy; K31.84 Gastroparesis; J98.11 Atelectasis; T38.0X5A Adverse effect of glucocorticoids and synthetic analogues, initial encounter; E11.649 Type 2 diabetes mellitus with hypoglycemia without coma; R30.0 Dysuria; I10 Essential (primary) hypertension; I25.10 Atherosclerotic heart disease of native coronary artery without angina pectoris; G47.30 Sleep apnea, unspecified; E78.5 Hyperlipidemia, unspecified; E03.9 Hypothyroidism, unspecified; K21.9 Gastro-esophageal reflux disease without esophagitis; G20 Parkinson's disease; F03.90 Unspecified dementia, unspecified severity, without behavioral disturbance, psychotic disturbance, mood disturbance, and anxiety; F41.9 Anxiety disorder, unspecified; F39 Unspecified mood [affective] disorder; G89.29 Other chronic pain; K59.00 Constipation, unspecified; R26.9 Unspecified abnormalities of gait and mobility; E66.9 Obesity, unspecified; Z68.41 Body mass index [BMI] 40.0-44.9, adult; Z79.4 Long term (current) use of insulin; Z79.82 Long term (current) use of aspirin
CPT/HCPCS: 71045; 71046; 71275; 74018; 80048; 81003; 82010; 82803; 82948; 83036; 83735; 83880; 84484; 84999; 85025; 85027; 93005; 94010; 94640; 94640 76; 94660; 94760; 94799; 99202; 99281; 99285; J1644; J1815; J1956; J2405; J2920; J3010; J7030; J7512; S0028

== ENCOUNTER 2017-07-05 16:36 | Emergency (ER) | payer OTHER ==
[~2017-07-05] VITALS: Ht 147.3 cm; Wt 88.6 kg
[~2017-07-05 16:36] MED LIST changes: +ACETAMINOPHEN325 M1 PO; +K-DUR20 MEQ PO; +LACTULOSE10 GM/151 PR; +VIT B COMPLEX PO; +VITAMIN D31000 UNIT PO; +ZIPRASIDONE HCL60 MG PO
[2017-07-05 17:31] LABS: BASOPHIL (%) 0.1 % (0-1); EOSINOPHIL (%) 0.9 % (0-5); EOSINOPHIL COUNT 0.1 K/uL (0-0.3); HEMATOCRIT 37.1 % (36.0-46.0); HEMOGLOBIN 12.8 G/DL (11.9-15.5); IMMATURE GRANULOCYTE (%) 0.3 % (0.0-0.7); LYMPHOCYTE (%) 26.3 % (15-42); LYMPHOCYTE COUNT 1.8 K/uL (1.0-2.8); MCH 32.2 PG (29.0-34.0); MCHC 34.5 G/DL (30.0-36.0); MCV 93.5 FL (83-99); MONOCYTE (%) 9.1 % (3-12); MONOCYTE COUNT 0.6 K/uL (0-0.8); NEUTROPHIL (%) 63.3 % (45-76); NEUTROPHIL COUNT 4.3 K/uL (1.8-6.4); RBC DIS.WIDTH-CV 12.7 % (11.8-14.6); RBC DIS.WIDTH-SD 43.9 % (39-53); RED BLOOD COUNT 3.97 M/uL (3.80-5.20); WHITE BLOOD COUNT 6.8 K/uL (4.1-10.2)
[2017-07-05 17:40] LABS: CHLORIDE 105 mEq/L (99-109); POTASSIUM 4.1 mEq/L (3.7-5.4); SODIUM 136 mEq/L (136-147)
[2017-07-05 17:45] LABS: CREATININE 1.1 mg/dL (0.6-1.3); GFR ESTIMATE (CALCULATED) 51 mL/min/
[2017-07-05 17:46] LABS: UREA NITROGEN (BUN) 16 mg/dL (9-23)
[2017-07-05 17:51] LABS: GLUCOSE 456 mg/dL (70-99)
[2017-07-05 18:20] LABS: CARBON DIOXIDE (BICARBONATE) 22.9 MEQ/L (20-31)
[2017-07-05 19:56] LABS: PLATELET COUNT 159 K/uL (156-360)
[2017-07-05 20:51] LABS: CHLORIDE 105 mEq/L (99-109); POTASSIUM 3.9 mEq/L (3.7-5.4); SODIUM 137 mEq/L (136-147)
[2017-07-05 20:57] LABS: CREATININE 0.9 mg/dL (0.6-1.3); GFR ESTIMATE (CALCULATED) > 59 mL/min/
[2017-07-05 20:58] LABS: UREA NITROGEN (BUN) 16 mg/dL (9-23)
[2017-07-05 21:05] LABS: GLUCOSE 135 mg/dL (70-99)
[2017-07-05 21:51] VITALS: BP 102/65
== END 2017-07-05 21:45 | disposition home or self-care (01) ==
LOC: EME 16:36
PROVIDERS: Emergency Medicine
DX: E11.65 Type 2 diabetes mellitus with hyperglycemia (principal); F41.9 Anxiety disorder, unspecified; G20 Parkinson's disease; E11.40 Type 2 diabetes mellitus with diabetic neuropathy, unspecified; K31.84 Gastroparesis; K21.9 Gastro-esophageal reflux disease without esophagitis; I25.10 Atherosclerotic heart disease of native coronary artery without angina pectoris; I10 Essential (primary) hypertension; G47.30 Sleep apnea, unspecified; F32.9 Major depressive disorder, single episode, unspecified; F03.90 Unspecified dementia, unspecified severity, without behavioral disturbance, psychotic disturbance, mood disturbance, and anxiety; E78.5 Hyperlipidemia, unspecified; E03.9 Hypothyroidism, unspecified; J45.909 Unspecified asthma, uncomplicated; F31.9 Bipolar disorder, unspecified; Z79.4 Long term (current) use of insulin; Z79.82 Long term (current) use of aspirin; Z88.5 Allergy status to narcotic agent
CPT/HCPCS: 71046; 80048; 80048 91; 82010; 82803; 82948; 85025; 93005; 99281; 99285; J7120

== ENCOUNTER 2017-08-15 09:33 | Emergency (ER) | payer OTHER ==
[~2017-08-15] VITALS: Ht 147.3 cm; Wt 89.2 kg
[2017-08-15 10:13] LABS: BASOPHIL (%) 0.5 % (0-1); CARBON DIOXIDE (BICARBONATE) 27.3 MEQ/L (20-31); EOSINOPHIL (%) 2.9 % (0-5); EOSINOPHIL COUNT 0.2 K/uL (0-0.3); HEMATOCRIT 35.3 % (36.0-46.0); HEMOGLOBIN 12.4 G/DL (11.9-15.5); IMMATURE GRANULOCYTE (%) 0.3 % (0.0-0.7); LYMPHOCYTE (%) 38.5 % (15-42); LYMPHOCYTE COUNT 2.5 K/uL (1.0-2.8); MCHC 35.1 G/DL (30.0-36.0); MONOCYTE (%) 12.8 % (3-12); MONOCYTE COUNT 0.8 K/uL (0-0.8); NEUTROPHIL COUNT 2.9 K/uL (1.8-6.4); PLATELET COUNT 155 K/uL (156-360); RBC DIS.WIDTH-CV 12.5 % (11.8-14.6); RBC DIS.WIDTH-SD 40.8 % (39-53); RED BLOOD COUNT 3.88 M/uL (3.80-5.20); WHITE BLOOD COUNT 6.5 K/uL (4.1-10.2)
[2017-08-15 10:21] LABS: CHLORIDE 98 mEq/L (99-109); POTASSIUM 4.2 mEq/L (3.7-5.4); SODIUM 133 mEq/L (136-147)
[2017-08-15 10:27] LABS: CREATININE 1.2 mg/dL (0.6-1.3); GFR ESTIMATE (CALCULATED) 47 mL/min/; GLUCOSE 504 mg/dL (70-99)
[2017-08-15 10:28] LABS: UREA NITROGEN (BUN) 11 mg/dL (9-23)
[2017-08-15 13:16] LABS: APPEARANCE CLEAR ((CLEAR)); BILIRUBIN NEGATIVE; BLOOD NEGATIVE; COLOR STRAW ((YELLOW)); GLUCOSE (STRIP) >=500; KETONES NEGATIVE; LEUKOCYTES MODERATE; NITRITE NEGATIVE; PROTEIN (STRIP) NEGATIVE; SPECIFIC GRAVITY 1.013 (1.000-1.030); UROBILINOGEN 0.2 MG/DL (0.2-1.0)
[2017-08-15 13:19] LABS: BACTERIA RARE /HPF; EPITHELIAL CELLS 1+ /HPF; MUCUS NONE SEEN /LPF; RED BLOOD CELLS 0-5 /HPF (0-5); UCUL ADDED? YES; WHITE BLOOD CELLS 20-30 /HPF (0-5)
[2017-08-15] MEDS ORDERED: CIPRO500 MG PO (13:40)
[2017-08-15 14:00] VITALS: BP 97/64
== END 2017-08-15 14:35 | disposition home or self-care (01) ==
LOC: EME 09:33
PROVIDERS: Emergency Medicine
DX: E11.65 Type 2 diabetes mellitus with hyperglycemia (principal); N39.0 Urinary tract infection, site not specified; Z79.4 Long term (current) use of insulin; E03.9 Hypothyroidism, unspecified; J45.909 Unspecified asthma, uncomplicated; F32.9 Major depressive disorder, single episode, unspecified; E78.5 Hyperlipidemia, unspecified; I10 Essential (primary) hypertension; F03.90 Unspecified dementia, unspecified severity, without behavioral disturbance, psychotic disturbance, mood disturbance, and anxiety; I25.10 Atherosclerotic heart disease of native coronary artery without angina pectoris; G20 Parkinson's disease; G89.29 Other chronic pain; K21.9 Gastro-esophageal reflux disease without esophagitis; F41.9 Anxiety disorder, unspecified; G47.30 Sleep apnea, unspecified; Z88.5 Allergy status to narcotic agent
CPT/HCPCS: 71045; 80048; 81003; 82010; 82803; 82948; 85025; 87086 GA; 93005; 99281; 99285; J7030

== ENCOUNTER 2017-08-18 13:47 | Emergency (ER) | payer OTHER ==
[~2017-08-18] VITALS: Ht 147.3 cm; Wt 92.1 kg
[2017-08-18 15:16] LABS: HEMATOCRIT 35.5 % (36.0-46.0); HEMOGLOBIN 12.6 G/DL (11.9-15.5); MCH 32.6 PG (29.0-34.0); MCHC 35.5 G/DL (30.0-36.0); MCV 91.7 FL (83-99); PLATELET COUNT 161 K/uL (156-360); RBC DIS.WIDTH-CV 12.7 % (11.8-14.6); RBC DIS.WIDTH-SD 42.3 % (39-53); RED BLOOD COUNT 3.87 M/uL (3.80-5.20); WHITE BLOOD COUNT 6.1 K/uL (4.1-10.2)
[2017-08-18 15:24] LABS: ALBUMIN 3.5 g/dL (3.2-4.8); CHLORIDE 105 mEq/L (99-109); SODIUM 135 mEq/L (136-147)
[2017-08-18 15:28] LABS: TOTAL BILIRUBIN 0.6 mg/dL (0.0-1.0)
[2017-08-18 15:30] LABS: ALKALINE PHOSPHATASE 82 IU/L (3-129); CREATININE 1.1 mg/dL (0.6-1.3); GFR ESTIMATE (CALCULATED) 51 mL/min/
[2017-08-18 15:31] LABS: UREA NITROGEN (BUN) 11 mg/dL (9-23)
[2017-08-18 15:32] LABS: AST (GOT) 25 IU/L (2-34)
[2017-08-18 15:33] LABS: ALT (GPT) 18 IU/L (3-49); GLUCOSE 442 mg/dL (70-99)
[2017-08-18 16:35] LABS: CARBON DIOXIDE (BICARBONATE) 26.7 MEQ/L (20-31)
[2017-08-18 17:47] LABS: APPEARANCE CLEAR ((CLEAR)); BILIRUBIN NEGATIVE; BLOOD NEGATIVE; COLOR STRAW ((YELLOW)); GLUCOSE (STRIP) >=500; KETONES NEGATIVE; LEUKOCYTES NEGATIVE; NITRITE NEGATIVE; PROTEIN (STRIP) NEGATIVE; SPECIFIC GRAVITY 1.015 (1.000-1.030); UCUL ADDED? NO; UROBILINOGEN 0.2 MG/DL (0.2-1.0)
[2017-08-18 19:21] VITALS: BP 144/79
== END 2017-08-18 19:24 | disposition home or self-care (01) ==
LOC: EME 13:47
PROVIDERS: Emergency Medicine
DX: E11.65 Type 2 diabetes mellitus with hyperglycemia (principal); R30.0 Dysuria; Z79.4 Long term (current) use of insulin; I10 Essential (primary) hypertension; E78.5 Hyperlipidemia, unspecified; J45.909 Unspecified asthma, uncomplicated; E03.9 Hypothyroidism, unspecified; Z79.82 Long term (current) use of aspirin
CPT/HCPCS: 80053; 81003; 82010; 82803; 82948; 83605; 85027; 99281; 99285; J7030

== ENCOUNTER 2017-11-23 11:14 | Emergency (ER) | payer OTHER ==
[~2017-11-23] VITALS: Ht 162.6 cm; Wt 79.3 kg
[2017-11-23 11:52] LABS: BASOPHIL (%) 0.1 % (0-1); EOSINOPHIL (%) 0 % (0-5); HEMATOCRIT 34.1 % (36.0-46.0); HEMOGLOBIN 11.8 G/DL (11.9-15.5); IMMATURE GRANULOCYTE (%) 0.8 % (0.0-0.7); LYMPHOCYTE (%) 19.9 % (15-42); LYMPHOCYTE COUNT 1.8 K/uL (1.0-2.8); MCHC 34.6 G/DL (30.0-36.0); MCV 92.4 FL (83-99); MONOCYTE (%) 6.7 % (3-12); MONOCYTE COUNT 0.6 K/uL (0-0.8); NEUTROPHIL (%) 72.5 % (45-76); NEUTROPHIL COUNT 6.4 K/uL (1.8-6.4); RBC DIS.WIDTH-CV 12.4 % (11.8-14.6); RBC DIS.WIDTH-SD 41.9 % (39-53); RED BLOOD COUNT 3.69 M/uL (3.80-5.20); WHITE BLOOD COUNT 8.8 K/uL (4.1-10.2)
[2017-11-23 11:59] LABS: CHLORIDE 96 mEq/L (99-109); POTASSIUM 5.5 mEq/L (3.7-5.4); SODIUM 132 mEq/L (136-147)
[2017-11-23 12:01] LABS: GLUCOSE 476 mg/dL (70-99)
[2017-11-23 12:05] LABS: CREATININE 1.2 mg/dL (0.6-1.3); GFR ESTIMATE (CALCULATED) 46 mL/min/; UREA NITROGEN (BUN) 20 mg/dL (9-23)
[2017-11-23 13:55] LABS: HEMATOLOGY COMMENT 1 SN; PLAT.SUFFICIENCY ADEQUATE; PLATELET COUNT 185 K/uL (156-360)
[2017-11-23 14:39] VITALS: BP 100/60
== END 2017-11-23 14:40 | disposition home or self-care (01) ==
LOC: EME 11:14
PROVIDERS: Emergency Medicine
DX: E11.65 Type 2 diabetes mellitus with hyperglycemia (principal); I10 Essential (primary) hypertension; J45.909 Unspecified asthma, uncomplicated; E78.5 Hyperlipidemia, unspecified; F03.90 Unspecified dementia, unspecified severity, without behavioral disturbance, psychotic disturbance, mood disturbance, and anxiety; G20 Parkinson's disease; E11.40 Type 2 diabetes mellitus with diabetic neuropathy, unspecified; K31.84 Gastroparesis; K21.9 Gastro-esophageal reflux disease without esophagitis; I25.10 Atherosclerotic heart disease of native coronary artery without angina pectoris; G47.30 Sleep apnea, unspecified; E03.9 Hypothyroidism, unspecified; F32.9 Major depressive disorder, single episode, unspecified; F41.9 Anxiety disorder, unspecified; F31.9 Bipolar disorder, unspecified; Z79.4 Long term (current) use of insulin; Z79.82 Long term (current) use of aspirin; Z88.5 Allergy status to narcotic agent
CPT/HCPCS: 80048; 81003; 82010; 82803; 82948; 85025; 99281; 99285; J7030